=== PATIENT | male | born 1985 | race American Indian/Alaskan Native ===

== ENCOUNTER 2017-10-10 12:10 | Emergency (ER) | payer SELFPAY ==
[2017-10-10 12:15] VITALS: BP 135/72
--- NOTE | 2017-10-10 13:56 | Emergency Department Report ---
Chief Complaint: Urogenital-Male Stated Complaint: ITCHING Time Seen by Provider: 10/10/17 13:54 - HPI History of Present Illness: Patient is a 32-year-old -[place] male who is coming in presenting with penile itching. Patient states that for the past week he's had some small bumps just proximal to the glans of the penis. States he has no discharge no dysuria. Patient also states he's had some problems with his gums for months - ROS Review of Systems: Review of systems negative except for those elements in HPI - Exam Vital Signs: Vital Signs 10/10/17 10/10/17 12:14 13:31 Temperature 98.0 F Pulse Rate 68 Respiratory 16 16 Rate Blood Pressure 135/72 O2 Sat by Pulse 100 100 Oximetry Physical Exam: Focused physical exam patient's teeth appear normal heart and lung exams within normal limits your general patient has some small satellite lesions on the skin just proximal to the glans appear fungal in nature MSE screening note: Focused history and physical exam performed. Due to findings the following was ordered: Patient given information about xoul-dso-seyfcav jock itch creams and also given a dental clinic referral ED Disposition for MSE Disposition: Z-07 MED SCREENING EXAM-LEFT Is pt being admited?: No Does the pt Need Aspirin: No Condition: Fair Instructions: Jock Itch (ED) Referrals: RAUL MCGOVERN MD [Primary Care Provider] - 3-5 Days
== END 2017-10-10 13:56 | disposition left against medical advice (07) ==
LOC: ED 12:10
DX: Z53.21 Procedure and treatment not carried out due to patient leaving prior to being seen by health care provider (principal)